=== PATIENT | female | born 1950 | race Caucasian/White ===

== ENCOUNTER → 2017-01-11 | Outpatient (CLI) | payer OTHER | LOC: FIMAGING 13:08 | PROVIDERS: ATTEND Internal Medicine | DX: Z12.31 Encounter for screening mammogram for malignant neoplasm of breast (principal) | CPT/HCPCS: G0202 ==

== ENCOUNTER → 2017-07-16 | Outpatient (CLI) | payer OTHER | LOC: FIMAGING 10:39 | PROVIDERS: ATTEND Orthopaedic Surgery | DX: M17.11 Unilateral primary osteoarthritis, right knee (principal) ==

== ENCOUNTER 2017-08-07 10:15 | Inpatient (IN) | payer OTHER ==
--- NOTE | 2017-08-07 07:18 | PDHPUP ---
History & Physical Update H&P update statement: This history and physical update is based on an assessment of the patient which was completed after admission or registration (within 24 hours), but prior to the surgery/procedure. H&P update: H&P reviewed & patient examined, no change in patient's condition since H&P completed
[~2017-08-07 10:15] MED LIST: BUPI/epINEPH/KETOROLAC IU ONE; ROPIVACAINE 0.2% 80 MG, EPINEPHrine 0.2 MG, KETOROLAC TROMETHAMINE 30 MG in SYRINGE 0 ML IU ONE; TRANEXAMIC ACID 3,000 MG in NS (SYRINGE) 50 ML IRR ONE; TRANEXAMIC ACID 3,000 MG/50 ML BAG IRR ONE; VANCOMYCIN HCL/NORMAL SALINE 250 ML IV ONE; VANCOMYCIN PHARMACY TO DOSE MISC ONE
[2017-08-07] MEDS ORDERED: ACETAMINOPHEN 325 MG TAB PO ONE (12:52)
[2017-08-07] MEDS ORDERED: FAMOTIDINE 20 MG TAB PO ONE (12:52)
[2017-08-07] MEDS ORDERED: DEXAMETHASONE 4 MG/ML VIAL IVP ONE (12:52)
[2017-08-07] MEDS ORDERED: LIDOCAINE 1% 2 ML INJ ID PRN (12:53)
[2017-08-07] MEDS ORDERED: LR 1,000 ML IV ONE (12:53)
[2017-08-07] MEDS ORDERED: MIDAZOLAM 2 MG/2 ML VIAL IVP ONE (12:56)
--- NOTE | 2017-08-07 12:59 | PDANEPAE ---
ANE History of Present Illness R TKA ANE Past Medical History - Cardiovascular History Hx Hypertension: No Hx Arrhythmias: No Hx Chest Pain: No Hx Coronary Artery / Peripheral Vascular Disease: No Hx CHF / Valvular Disease: No Hx Palpitations: No - Pulmonary History Hx COPD: No Hx Asthma/Reactive Airway Disease: No Hx Recent Upper Respiratory Infection: No Hx Oxygen in Use at Home: No Hx Sleep Apnea: No Sleep Apnea Screening Result - Last Documented: Negative - Neurologic History Hx Cerebrovascular Accident: No Hx Seizures: No Hx Dementia: No - Endocrine History Hx Diabetes: No Endocrine History Comment: Hashimotos - Renal History Hx Renal Disorders: No - Liver History Hx Hepatic Disorders: Yes Hepatic History Comment: Hereditary hemochromatosis - Neurological & Psychiatric Hx Hx Neurological and Psychiatric Disorders: No - Cancer History Hx Cancer: No - Congenital Disorder History Hx Congenital Disorders: No - GI History Hx Gastrointestinal Disorders: No - Other Health History Other Health History: osteo-arthritis - Chronic Pain History Chronic Pain: No - Surgical History Prior Surgeries: x 2 ANE Review of Systems Review of systems is: negative Review of Systems: - Exercise capacity METS (RN): 4 METS ANE Patient History - Allergies Allergies/Adverse Reactions: cephalexin monohydrate [From Keflex] Allergy (Severe, Verified 10/22/13 10:43) INTRACTABLE VOMITING,SWELLING fluconazole [From Diflucan] Allergy (Intermediate, Verified 10/22/13 10:43) Rash Penicillins Allergy (Unknown, Verified 10/22/13 10:43) UNK aspirin Allergy (Verified 07/16/17 10:44) Rash - Home Medications Home medications: home medication list seen and reviewed Home Medications: Levothyroxine [Synthroid 75 mcg (*)] 75 mcg PO DAILY06 10/22/13 [Last Taken ] Liothyronine Sodium [Cytomel 5 mcg (*)] 5 mcg PO DAILY 07/16/17 [Last Taken ] - NPO status NPO Status: no food or drink >8 hours - Anes Hx Hx Anesthesia Complications (with details): spinal CHANCE in '80s - Smoking Hx Smoking Status: Never smoked - Family Anes Hx Family Anes Hx: none Family Hx Anesthesia Complications: none ANE Labs/Vital Signs - Vital Signs Height: 160.02 cm Weight: 71.668 kg ANE Physical Exam - Airway Neck exam: FROM Mallampati Score: Class 1 Mouth exam: normal dental/mouth exam - Pulmonary Pulmonary: no respiratory distress - Cardiovascular Cardiovascular: regular rate and rhythym - ASA Status ASA Status: II ANE Anesthesia Plan Anesthesia Plan: spinal Regional Anesthesia: adductor canal FNB Total IV Anesthesia: Yes
[2017-08-07] MEDS ORDERED: LIDOCAINE 1% 2 ML INJ ONE (13:00)
[2017-08-07] MEDS ORDERED: PROPOFOL/EMULSION 500 MG/50 ML BOTTLE IV ONE (14:23)
[2017-08-07] MEDS ORDERED: LIDOCAINE 2% 100 MG/5 ML SYR ONE (14:23)
[2017-08-07] MEDS ORDERED: METOCLOPRAMIDE 10 MG/2 ML VIAL IVP PRN (14:49)
[2017-08-07] MEDS ORDERED: PROMETHAZINE HCL 25 MG/ML INJ IVP PRN ×2 (14:49→15:01)
[2017-08-07] MEDS ORDERED: DIPHENOXYLATE/ATROPINE LOMOTIL 1 TAB PO PRN (14:49)
[2017-08-07] MEDS ORDERED: TEMAZEPAM 15 MG CAP PO PRN (14:49)
[2017-08-07] MEDS ORDERED: LACTULOSE 20 GM/30 ML UDCUP PO PRN (14:49)
[2017-08-07] MEDS ORDERED: POLYETHYLENE GLYCOL 3350 17 GM PKT PO PRN (14:49)
[2017-08-07] MEDS ORDERED: ONDANSETRON 4 MG/2 ML VIAL IVP PRN ×2 (14:49→15:01)
[2017-08-07] MEDS ORDERED: MAGNESIUM HYDROXIDE 30 ML UDCUP PO PRN (14:49)
[2017-08-07] MEDS ORDERED: diphenhydrAMINE 25 MG CAP PO PRN (14:49)
[2017-08-07] MEDS ORDERED: PROMETHAZINE HCL 25 MG SUPPR PR PRN (14:49)
[2017-08-07] MEDS ORDERED: BISACODYL 10 MG SUPP PR PRN (14:49)
[2017-08-07] MEDS ORDERED: LR 1,000 ML IV SCH (15:00)
[2017-08-07] MEDS ORDERED: HYDROmorphONE/DILAUDID 1 MG/ML INJ IVP PRN (15:01)
[2017-08-07] MEDS ORDERED: MEPERIDINE 25 MG/ML SYR IVP PRN (15:01)
[2017-08-07] MEDS ORDERED: DEXAMETHASONE 4 MG/ML VIAL IVP PRN (15:01)
[2017-08-07] MEDS ORDERED: NALOXONE HCL 0.4 MG/ML INJ IVP PRN (15:01)
[2017-08-07] MEDS ORDERED: ACETAMINOPHEN 500 MG TAB PO PRN (15:01)
[2017-08-07] MEDS ORDERED: fentaNYL 100 MCG/2 ML INJ IVP PRN (15:01)
[2017-08-07] MEDS ORDERED: OXYCODONE/APAP 5/325 TAB PO PRN (15:01)
[2017-08-07] MEDS ORDERED: HYDROCODONE/APAP 5/325 TAB PO PRN (15:01)
--- NOTE | 2017-08-07 15:03 | POSTANESTH ---
Post Anesthetic Evaluation Cardiovascular Status: Normal, Stable, Similar to Pre-Op Cond Respiratory Status: Normal, Stable, Similar to Pre-op Cond. Level of Consciousness/Mental Status: Can Participate in Eval, Mildly Sleepy, Arousable Pain Control: Adequate, Prn Tx Ordered Nausea/Vomiting Control: Adequate, Prn Tx Ordered Complications Possibly Related to Anesthesia: None Noted
--- NOTE | 2017-08-07 16:05 | POSTOPPROG ---
Post Op Note Date of Operation: 08/07/17 Surgeon: Triston Collins Pot Annealer: rj collins Anesthesiologist: dr. mcwilliams Anesthesia: Spinal, Other (Specify) (adductor canal block) Pre-op Diagnosis: right knee OA Post-op Diagnosis: same Indication: right knee pain Procedure: R TKA robot assisted Findings: severe knee OA Inf/Abcess present in the surg proc area at time of surgery?: No EBL: 50-100
[2017-08-07] MEDS: ACETAMINOPHEN 325 MG TAB PO SCH (18:15)
[2017-08-07] MEDS: ONDANSETRON DISINTEGRATING 4 MG TAB PO PRN (20:37)
[2017-08-07] MEDS: SENNOSIDES/DOCUSATE SODIUM TAB PO SCH (20:37)
[2017-08-07] MEDS: oxyCODONE IR 5 MG TAB PO PRN (20:38)
[2017-08-07] MEDS: FAMOTIDINE 20 MG TAB PO SCH (20:38)
[2017-08-07] MEDS: ASPIRIN 81 MG CHEWABLE TAB PO SCH (20:38)
[2017-08-08] MEDS: ONDANSETRON DISINTEGRATING 4 MG TAB PO PRN ×5 (00:36→20:33)
[2017-08-08] MEDS: oxyCODONE IR 5 MG TAB PO PRN ×6 (00:37→20:34)
[2017-08-08] MEDS: ACETAMINOPHEN 325 MG TAB PO SCH ×4 (00:37→17:54)
[2017-08-08] MEDS ORDERED: VANCOMYCIN 1 GM in NS 250 ML IV ONE (01:00)
[2017-08-08] MEDS: LEVOTHYROXINE 75 MCG TAB PO SCH (05:31)
[2017-08-08] MEDS: CYCLOBENZAPRINE 10 MG TAB PO PRN (07:18)
[2017-08-08] MEDS: ASPIRIN 81 MG CHEWABLE TAB PO SCH ×2 (08:56→20:33)
[2017-08-08] MEDS: SENNOSIDES/DOCUSATE SODIUM TAB PO SCH ×2 (08:56→20:33)
[2017-08-08] MEDS: FAMOTIDINE 20 MG TAB PO SCH ×2 (08:57→20:34)
[2017-08-08] MEDS: LIOTHYRONINE SODIUM 5 MCG TAB PO SCH (09:03)
--- NOTE | 2017-08-08 09:05 | SOAPPROG ---
SOAP Progress Note Assessment/Plan: Assessment: Patient is doing well POD 1 s/p R TKA Pain management: pain is well controlled on oral pain meds. VTE ppx: recommend aspirin 81 mg BID for 4 weeks, cont NEHAL and SCDs D/c planning: d/c to home today pending release from PT Plan: 08/08/17 09:04 Subjective: Idalia is doing well today, denies SOB, chest pain and N/V. Objective: Vital Signs Temp Pulse Resp BP Pulse Ox 36.6 C 66 16 109/68 94 08/08/17 07:21 08/08/17 07:21 08/08/17 07:21 08/08/17 07:21 08/08/17 07:21 Laboratory Results 08/08/17 04:45 08/07/17 08/08/17 08/09/17 05:59 05:59 05:59 Intake Total 2415 730 Output Total 1030 500 Balance 1385 230 RLE: incision dressing is clean and dry, NVI, +pf/df ICD10 Worksheet Patient Problems: Problems Problem Status Onset Primary localized osteoarthritis of right knee Acute
--- NOTE | 2017-08-08 17:18 | PDMN ---
Medical Necessity Medical necessity: Patient meets inpatient criteria per PA and [facility] S-700 Knee Arthroplasty, Total (extended stay criteria: LOS will be > 2 midnights for new need for supplemental O2 at rest to maintain sat > 90% and ongoing PT needs postop for safe DC.)
--- NOTE | 2017-08-08 19:47 | GOP ---
[f rep st] OPERATIVE REPORT DATE OF OPERATION: 08/07/2017 SURGEON: Kirill Hernandes MD GREENHOUSE FLORIST: RILEY Monroy ANESTHESIA: Spinal. PREOPERATIVE DIAGNOSIS: Right knee osteoarthritis. POSTOPERATIVE DIAGNOSIS: Right knee osteoarthritis. PROCEDURE PERFORMED: Right total knee arthroplasty with computer navigation, robotic assist. FINDINGS: INDICATIONS: The patient is a 66-year-old female with severe and progressive pain and deformity of t he right knee unresponsive to conservative care. The risks and benefits of surgical intervention wer e explained in detail. DESCRIPTION OF PROCEDURE: The patient was brought to the operative room and placed on the table in t he supine position. Spinal anesthesia was induced without difficulty. A pneumatic tourniquet was appl ied about the right proximal thigh, and the leg was prepped and draped in a sterile fashion. The leg desai was applied. After exsanguination by elevation the tourniquet was inflated to 250 mmHg. Incision was made anterior medial from the tibial tuberosity to a point 2 cm proximal to the superior pole of the patella. Medial parapatellar arthrotomy was carried out from the superior pole of the p atella and posteriorly in line with the fibers of the Type II VMO. Severe tricompartmental osteoarthr itis. The medial collateral ligament was elevated and the infrapatellar fat pad was resected. The patella was everted and the articular surface was excised. A 29 mm patellar button was placed. Attention was turned first to the distal aspect of the femur. After exposure of the femur, 2 half pi ns were placed for fixation of the femoral array. In a similar fashion, 2 pins were placed anteromed ial on the tibia for fixation of the tibial array. External land marking and registration of the hip center was performed without difficulty. Internal femoral and tibial registration was carried out w ithout difficulty and the femoral and tibial checkpoints were placed and verified for accuracy. Attention was turned to the femur. The foot print for the size 2 femoral component was cut with the saw using the [employer] robotic system and verified for accuracy against the CT based plan. In a similar f ashion, the saw was used to cut the footprint for the size 2 tibial component using the [employer] system an d verified for accuracy against the CT based plan. The tibial articular surface was excised without d ifficulty, followed by the intercondylar box cut. The knee was extended and the remnants of the medial and lateral meniscus were excised. The posterior capsule was injected with ropivacaine, epinephrine and Toradol. A size 2 tibial tray was positioned . Trial reduction was then carried out. There was excellent range of motion, alignment, and stability using the 2 x 11 mm polyethylene. All trials were then removed. The joint was thoroughly irrigated and carefully dried. The press-fit c omponents were implanted. The permanent 2 x 11 mm polyethylene was placed without difficulty. The tourniquet was deflated and all bleeders were coagulated. The wound was thoroughly irrigated and closed using interrupted sutures of 2-0 Vicryl for the joint capsule. The subcu was closed with 3-0 V icryl and the skin with 4-0 Monocryl. Dermabond and Steri-Strips were applied followed by a compress robyn dressing. The patient was then moved from the operating room to the recovery room in good conditi on, having tolerated the procedure well. /[id number]/MODL
[2017-08-09] MEDS: ACETAMINOPHEN 325 MG TAB PO SCH ×3 (00:07→12:29)
[2017-08-09] MEDS: oxyCODONE IR 5 MG TAB PO PRN ×4 (05:03→12:32)
[2017-08-09] MEDS: LEVOTHYROXINE 75 MCG TAB PO SCH (05:04)
[2017-08-09] MEDS: ONDANSETRON DISINTEGRATING 4 MG TAB PO PRN ×2 (05:09→08:58)
[2017-08-09 08:17] VITALS: PULSE 62
[2017-08-09] MEDS: SENNOSIDES/DOCUSATE SODIUM TAB PO SCH (08:48)
[2017-08-09] MEDS: FAMOTIDINE 20 MG TAB PO SCH (08:49)
[2017-08-09] MEDS: LIOTHYRONINE SODIUM 5 MCG TAB PO SCH (08:49)
[2017-08-09] MEDS: ASPIRIN 81 MG CHEWABLE TAB PO SCH (08:49)
[2017-08-09 11:51] VITALS: BP 103/52; RESP 100; TEMP 98.7; O2SAT 2
[2017-08-09] MEDS: CYCLOBENZAPRINE 10 MG TAB PO PRN (12:29)
--- NOTE | 2017-08-09 13:50 | SOAPPROG ---
SOAP Progress Note Assessment/Plan: Assessment: Patient is doing well POD 2 s/p R TKA Pain management: pain is well controlled on oral pain meds. VTE ppx: recommend aspirin 81 mg BID for 4 weeks, cont NEHAL and SCDs D/c planning: d/c to home today pending release from PT foot drop: resolved Plan: 08/08/17 09:04 08/09/17 13:49 Subjective: foot drop has resolved, denies SOB, chest pain and N/V. Objective: Vital Signs Temp Pulse Resp BP Pulse Ox 37.1 C 62 100 H 103/52 L 2 L 08/09/17 11:48 08/09/17 11:48 08/09/17 11:48 08/09/17 11:48 08/09/17 11:48 Laboratory Results 08/09/17 04:27 08/08/17 08/09/17 08/10/17 05:59 05:59 05:59 Intake Total 2415 1320 780 Output Total 1030 2050 600 Balance 1385 -730 180 incision dressing is clean and dry, NVI, +pf/df ICD10 Worksheet Patient Problems: Problems Problem Status Onset Primary localized osteoarthritis of right knee Acute
--- NOTE | 2017-08-10 11:04 | GDS ---
[f rep st] DISCHARGE SUMMARY ADMISSION DIAGNOSIS: Right knee osteoarthritis. DISCHARGE DIAGNOSIS: Right knee osteoarthritis. PROCEDURE: Right total knee arthroplasty. VTE PROPHYLAXIS: Recommend aspirin 81 mg twice daily for 4 weeks. BRIEF DESCRIPTION OF HOSPITAL STAY: Patient was admitted for an elective joint arthroplasty. The pa tient tolerated the procedure well and has passed physical therapy. The patient was given appropriat e antibiotic prophylaxis and venous thromboembolism prophylaxis. The patient's pain was well control led on oral pain medication, patient was holding down food, and had urinated. Decision was made to d ischarge the patient. The patient was given post-operative prescriptions pre-operatively. PLAN: To follow up as scheduled at Dr. Hernandes's office September 05 at 8 a.m. /[id number]/MODL
== END 2017-08-09 15:24 | disposition home or self-care (01) | DRG 470 ==
LOC: F3E 12:12 → INTOOBSV 12:12 → F3N 17:29 → OBSVTOIN 08-08 17:00
PROVIDERS: ADMIT Orthopaedic Surgery; ATTEND Orthopaedic Surgery
PROC: 8E0YXBZ Computer Assisted Procedure of Lower Extremity (ICD-10-PCS; principal; 2017-08-07 14:15)
PROC: 0SRC0JA Replacement of Right Knee Joint with Synthetic Substitute, Uncemented, Open Approach (ICD-10-PCS; principal; 2017-08-07 14:15)
DX: M17.11 Unilateral primary osteoarthritis, right knee (principal); E03.9 Hypothyroidism, unspecified; J45.909 Unspecified asthma, uncomplicated
CPT/HCPCS: 97110-GP; 97116-GP; 97161-GP; 97165-GO; 97530-GP; 97535-GO; G0378; J0171; J1100; J1885; J2001; J2250; J2704; J3370

== ENCOUNTER → 2018-01-16 | Outpatient (CLI) | payer OTHER | LOC: FIMAGING 11:03 | PROVIDERS: ATTEND Internal Medicine | DX: Z12.31 Encounter for screening mammogram for malignant neoplasm of breast (principal) ==

== ENCOUNTER 2018-06-04 12:04 | Inpatient (IN) | payer OTHER ==
[2018-06-04] MEDS ORDERED: ONDANSETRON DISINTEGRATING 4 MG TAB PO PRN (13:20)
[2018-06-04] MEDS ORDERED: ACETAMINOPHEN 325 MG TAB PO PRN (13:20)
[2018-06-04] MEDS ORDERED: ONDANSETRON 4 MG/2 ML VIAL IVP PRN (13:20)
--- NOTE | 2018-06-04 13:35 | SOAPPROG ---
SOAP Progress Note Assessment/Plan: Assessment: Plan: 06/04/18 16:50 Asthma with current exacerbation: Has not responded adequately to outpt treatment, and has hx of becoming quite sick with her asthma. Will check CXR, CBC to assess for possible infection. Begin solumedrol, nebs treatments. Low threshold for pulmonary consult. Currently, O2 saturation is ok. Hypothyroid: will continue thyroid replacement. DVT prophylaxis: lovenox Dispo: admit to inpatient. Expect she will need at least 2 midnights for treatment of moderately severe asthma exacerbation. Subjective: 67 yo woman with hx mild, intermittent asthma who on occasion has a severe exacerbation. She saw her PCP on 05/29/18 for annual exam and felt well. However, 2 days later she wasn't feeling well at all and was very wheezy and short of breath. She was started on Zpak, albuterol inhaler, and prednisone 40mg daily. She is seen in the office today, 5 days later, and not feeling much better. She took her last dose of azithromycin today, as well as 20mg prednisone. She has been using her albuterol 2 puffs 3 times daily. She still feels very wheezy, SOB , and at times can hear rales in her lower lungs. O2 saturation is 92%. She has had two hospitalizations in the past for asthma over the last 8 years. She does have a hx of allergies. She is being admitted now for persistent asthma, unresponsive to outpatient treatment. Objective: Vital Signs Temp Pulse Resp BP Pulse Ox 36.8 C 67 18 135/83 H 96 06/04/18 13:28 06/04/18 13:28 06/04/18 13:28 06/04/18 13:28 06/04/18 13:28 General: well-developed, well nourished woman in mild respiratory distress. HEENT: NC/AT. PERRL, EOMI. Auditory canals clear, no cerumen. Sinuses NT bilaterally. Oral mucosa moist, no lesions. O/p without erythema, exudates. Neck: supple, no adenopathy, masses Lungs: diffuse inspiratory and expiratory wheezing especially in upper lung merino. Breath sounds somewhat more diminished in bases. No rales noted. Cardiovascular: RRR, no murmur. Abdomen: +bowel sounds, soft, NT Musculoskeletal: no swelling, deformity Skin: no rash, hives Extremities: no cyanosis, edema Neurologic: alert, oriented, no focal abnormality Psychiatric: pleasant, cooperative, normal mood, affect ICD10 Worksheet Patient Problems: Problems Problem Status Onset Primary localized osteoarthritis of right knee Acute
[2018-06-04] MEDS ORDERED: ALBUTEROL 60 PUFFS/8 GM MDI IH PRN (14:36)
[2018-06-04 15:19] LABS: PLATELET COUNT 231 10^3/uL (150-400)
[2018-06-04] MEDS: ALBUTEROL 3 ML DEYVIAL IH PRN (15:23)
[2018-06-04] MEDS: methylPREDNISolone SOD SUCC 125 MG/2 ML VIAL IVP SCH ×2 (17:17→23:31)
[2018-06-04] MEDS: MONTELUKAST SODIUM 10 MG TAB PO SCH (17:17)
--- NOTE | 2018-06-04 17:19 | PDMN ---
Medical Necessity Medical necessity: Pt meets inpt criteria per MD order and MCG M-60, Asthma, A- 1 day. 67 y/o w/hx asthma admitted w/current exacerbation, has not responded adequately to outpt treatment, hx of severe exacerbations, now requires IV steroids, neb treatments, 2.5L O2. Est LOS.2MN for moderately severe asthma exacerbation.
--- NOTE | 2018-06-04 18:05 | GHP ---
DATE OF ADMISSION: 06/04/2018 HISTORY OF PRESENT ILLNESS: The patient is a 67-year-old woman with a history of mild intermittent a sthma, who on occasion develops a severe exacerbation. She saw her primary care provider on May 29, 2018 for her annual exam and felt well. However, 2 days later, she began to not feel well at all and was very wheezy and short of breath. She was started on a Z-Benjamin and albuterol inhaler and predni sone 40 mg daily. She is seen in the office today, 5 days later and is not feeling much better. She took her last dose of azithromycin today as well as 20 mg of prednisone. She has been using her alb uterol inhaler 2 puffs 3 times daily. She still feels very wheezy and short of breath and at times s he feels she can hear rales in her lower lungs. Her O2 saturation on room air is 92%. She has had 2 hospitalizations in the past for asthma over the last 8 years, both of which lasted a week. She ziegler s have a history of allergies. She is being admitted now for persistent asthma, unresponsive to outp atient treatment. PAST MEDICAL HISTORY: Gabe thyroiditis. Hereditary hemochromatosis, asthma, hyperlipidemia, an d persistent alkaline phosphatase elevation. MEDICATIONS: Lorazepam 1 mg at bedtime p.r.n., fish oil, vitamin D, vitamin K, cranberry 400 mg twic e daily, tumeric 500 mg 2 tablets daily, liothyronine sodium 5 mcg daily, Synthroid 75 mcg daily. MEDICATION ALLERGIES: Keflex causes nausea and vomiting. Diflucan and aspirin causes a rash. PAST SURGICAL HISTORY: Foot surgery. LEEP, breast reduction, x2, knee scope, abdominal li poplasty and right knee replacement. FAMILY HISTORY: The patient has 2 sons who are healthy. Her father of narcolepsy. He also had asthma. He at 88 from myocardial infarction. Her mother had Parkinson disease. Her paternal grandfather also had heart disease. She has 1 sibling who from alcohol abuse. SOCIAL HISTORY: She is a nonsmoker and nondrinker. She is and has 2 sons and is retired. REVIEW OF SYSTEMS: GENERAL: She denies any fever or chills. She is having difficulty sleeping. SEGUN NT: No sinus pain or sore throat. RESPIRATORY: Per HPI. She is complaining of cough, shortness of breath, sputum production, and wheezing. CARDIOVASCULAR: No chest pain or irregular heart rate. GI: Not assessed. MUSCULOSKELETAL: Complaining of back pain due to cough. SKIN: No rash. NEUROLOGIC: Mild headache. PHYSICAL EXAMINATION: VITAL SIGNS: Blood pressure 128/76, weight is 166, temperature 96, heart rate 91, respiratory rate 16, O2 saturation 92% on room air. GENERAL: She is a well-developed, well-sangita shed woman in mild respiratory distress, but speaking in full sentences. HEENT: Normocephalic, atra umatic. Pupils are equal, round, reactive to light. Extraocular movements are intact. Auditory can als are clear. Tympanic membranes intact with normal light reflexes. Sinuses are nontender bilatera lly. Oral cavity is moist with no lesions. Throat, no erythema or exudate. NECK: Supple without m asses or adenopathy. SKIN: No rashes. CARDIOVASCULAR: Regular rate and rhythm. No murmurs. LUNGS : Audible wheezing noted along with cough. Diffuse inspiratory and expiratory wheezing noted on exam . Especially in her upper lung merino. Breath sounds are somewhat more diminished in the bases. No rales noted. ABDOMEN: Soft with normal bowel sounds. Nontender and nondistended. MUSCULOSKELETAL : No swelling or deformity. EXTREMITIES: No clubbing, cyanosis, or edema. NEURO: She is alert and oriented. Cognitive exam is grossly normal. Strength is grossly normal. PSYCHIATRIC: She is alert and oriented. Cognitive function intact. She is cooperative with the exam. Judgment and insight ar e good. Mood and affect full range. ASSESSMENT AND PLAN: 1. Asthma with current exacerbation. She has not responded adequately to outpatient treatment and h as a history of becoming quite sick with her asthma. We will check chest x-ray and CBC to assess for possible infection. Begin Solu-Medrol and nebulizer treatments. Low threshold for Pulmonary consul t. Currently, O2 saturation is okay. 2. Hypothyroid on replacement and will continue this. 3. Deep vein thrombosis prophylaxis, Lovenox. DISPOSITION: Admit to inpatient. Expect she will need at least 2 midnights for treatment of moderat eyal severe asthma exacerbation. /[id number]/MODL
[2018-06-05 05:24] LABS: PLATELET COUNT 239 10^3/uL (150-400)
[2018-06-05] MEDS: LIOTHYRONINE SODIUM 5 MCG TAB PO SCH (05:58)
[2018-06-05] MEDS: LEVOTHYROXINE 75 MCG TAB PO SCH (05:58)
[2018-06-05] MEDS: methylPREDNISolone SOD SUCC 125 MG/2 ML VIAL IVP SCH ×4 (05:58→23:59)
[2018-06-05] MEDS: ENOXAPARIN 40 MG/0.4 ML SYR SC SCH (08:15)
[2018-06-05] MEDS: ALBUTEROL 3 ML DEYVIAL IH PRN (09:44)
--- NOTE | 2018-06-05 09:47 | SOAPPROG ---
SOAP Progress Note Assessment/Plan: Assessment: 67 yo female w/ RAD w/ acute asthma exacerbation 2/2 rhinovirus - Still very wheezy but feeling better than yesterday -changed nebs to scheduled q4 hours, has albuterol inhaler as back up prn as well, cont on solumedrol 125 q6 today and hopefully can decrease tomorrow - will make sure to add in GI protection, humidified oxygen -dvt prop - lovenox Plan: 06/05/18 09:44 Subjective: Doing better than yesterday but still very wheezy and tight Objective: Vital Signs Temp Pulse Resp BP Pulse Ox 36.8 C 60 16 130/75 H 97 06/05/18 08:00 06/05/18 08:00 06/05/18 08:00 06/05/18 08:00 06/05/18 08:00 Microbiology 06/04/18 16:45 Respiratory Panel (PCR) - Final Nasal, Sinus - Swab Human Rhinovirus/Enterovirus Laboratory Results 06/05/18 05:08 06/04/18 15:04 06/04/18 06/05/18 06/06/18 05:59 05:59 05:59 Intake Total 500 Balance 500 Gen: pleasant female, alert, oriented Heent: perr, eomi NECK: soft supple not using asscessory muscles for breathing Chest: wheezy and rhonchi throughout CV; rrr ABD: soft nt/nd Ext: no edema, 2 + pulses - Pending Discharge Pending Discharge Within 24 Hours: Yes Pending Discharge Date: 06/06/18 Pending Discharge Time: 11:00 ICD10 Worksheet Patient Problems: Problems Problem Status Onset Primary localized osteoarthritis of right knee Acute
[2018-06-05] MEDS: ALBUTEROL 3 ML DEYVIAL IH SCH ×4 (10:01→21:25)
[2018-06-05] MEDS: FAMOTIDINE 20 MG TAB PO SCH ×2 (10:08→20:43)
--- NOTE | 2018-06-05 10:24 | ASMTCMCOM ---
CM Note CM Note Notes: Pt is a 67 y/o female admitted for shortness of breath and feeling weezy. Pt will most likely d/c independent when medically stable. No therapies ordered at this time. CM available for changes. Plan: Independent Date Signed: 06/05/2018 10:24 AM Electronically Signed By:EKNNY Brambila
[2018-06-05] MEDS: MONTELUKAST SODIUM 10 MG TAB PO SCH (17:06)
[2018-06-06] MEDS: ALBUTEROL 3 ML DEYVIAL IH SCH ×6 (01:31→22:23)
[2018-06-06] MEDS: methylPREDNISolone SOD SUCC 125 MG/2 ML VIAL IVP SCH ×3 (05:47→18:29)
[2018-06-06] MEDS: LEVOTHYROXINE 75 MCG TAB PO SCH (05:47)
[2018-06-06] MEDS: LIOTHYRONINE SODIUM 5 MCG TAB PO SCH (05:47)
[2018-06-06] MEDS: FAMOTIDINE 20 MG TAB PO SCH ×2 (08:54→21:36)
[2018-06-06] MEDS: ENOXAPARIN 40 MG/0.4 ML SYR SC SCH (08:55)
[2018-06-06] MEDS: guaiFENesin 600 MG TAB.ER PO SCH ×2 (11:13→21:36)
--- NOTE | 2018-06-06 13:59 | SOAPPROG ---
SOAP Progress Note Assessment/Plan: Assessment: 67 yo female w/ RAD w/ acute asthma exacerbation 2/2 rhinovirus - Cough getting more productive, secretions breaking up, wheezing less -cont nebs, has albuterol inhaler as back up prn as well, decrease solumedrol to 60 q6 today and hopefully can change to po steroids tomorrow, cont w/ GI protection, added in mucinex as well today. -dvt proph - pt requesting d/c enoxaparin, will do and add in geno hose and she is ambulating around quite a bit -dispo - possibly tomorrow if able to do well on oral steroids throughout day tomorrow, vs Saturday if still needing IV solumedrol/chest still tight and wheezy - careful w/ too fast of d/c as she can get severe fast. 06/06/18 13:55 Subjective: Doing better, less wheezing, coughing more productive Objective: Vital Signs Temp Pulse Resp BP Pulse Ox 36.8 C 74 17 115/64 94 06/06/18 08:00 06/06/18 10:14 06/06/18 10:14 06/06/18 08:00 06/06/18 10:14 Laboratory Results 06/05/18 05:08 06/04/18 15:04 06/05/18 06/06/18 06/07/18 05:59 05:59 05:59 Intake Total 500 2000 Balance 500 1999 Gen: pleasant, A&O x4 Hent: perr, eomi Neck: soft/supple CHest: coarse bs, rhonchi, scattered wheezes, better air movement than yesterday CV: rrr nl s1 s2 Abd: soft nt/nd Ext: no edema ICD10 Worksheet Patient Problems: Problems Problem Status Onset Primary localized osteoarthritis of right knee Acute
[2018-06-06] MEDS: MONTELUKAST SODIUM 10 MG TAB PO SCH (18:28)
[2018-06-07] MEDS: methylPREDNISolone SOD SUCC 125 MG/2 ML VIAL IVP SCH ×4 (00:11→18:02)
[2018-06-07] MEDS: ALBUTEROL 3 ML DEYVIAL IH SCH ×6 (01:05→21:59)
[2018-06-07] MEDS: LIOTHYRONINE SODIUM 5 MCG TAB PO SCH (05:36)
[2018-06-07] MEDS: LEVOTHYROXINE 75 MCG TAB PO SCH (05:36)
[2018-06-07] MEDS: FAMOTIDINE 20 MG TAB PO SCH ×2 (08:12→21:13)
[2018-06-07] MEDS: guaiFENesin 600 MG TAB.ER PO SCH ×2 (08:12→21:13)
--- NOTE | 2018-06-07 10:08 | SOAPPROG ---
SOAP Progress Note Assessment/Plan: Assessment: 67yo female with a h/o Gabe thyroiditis, hereditary hemochromatosis, and asthma who presented with a severe asthma exacerbation secondary to a rhinovirus infection. Plan: Acute asthma exacerbation 2/2 rhinovirus- continue solumedrol 60mg q6h today, juana, qiafenisen. Much improved, off O2, but still with heavy productive cough and a good amount of wheezing. DVT prophylaxis- Ambulation, SCDs or compression stockings Dispo- Hopefully home tomorrow 06/07/18 10:08 Subjective: Idalia is ambulating in the [facility] during our visit. Overall she feels markedly better, however she is a little nervous about d/c'ing today, worried it may be a day too early. Objective: Vital Signs Temp Pulse Resp BP Pulse Ox 36.6 C 71 16 139/74 H 92 06/07/18 09:19 06/07/18 08:00 06/07/18 08:00 06/07/18 08:00 06/07/18 08:00 Laboratory Results 06/05/18 05:08 06/04/18 15:04 06/06/18 06/07/18 06/08/18 05:59 05:59 05:59 Intake Total 1999 2500 Balance 1999 2500 Gen- alert, oriented, vitals stable Head- normocephalic, atraumatic CV- S1S2, RRR, no murmurs, rubs, gallops Resp- bilateral rhonchi and wheezing, productive cough during exam Abd- SNT, nondistended Extremities- + pulses, no peripheral edema Skin- warm and dry Neuro- grossly intact ICD10 Worksheet Patient Problems: Problems Problem Status Onset Primary localized osteoarthritis of right knee Acute
[2018-06-07] MEDS: MONTELUKAST SODIUM 10 MG TAB PO SCH (18:06)
[2018-06-08] MEDS: methylPREDNISolone SOD SUCC 125 MG/2 ML VIAL IVP SCH ×2 (00:03→05:54)
[2018-06-08] MEDS: ALBUTEROL 3 ML DEYVIAL IH SCH ×3 (02:00→10:13)
[2018-06-08] MEDS: LEVOTHYROXINE 75 MCG TAB PO SCH (05:54)
[2018-06-08] MEDS: LIOTHYRONINE SODIUM 5 MCG TAB PO SCH (05:54)
[2018-06-08 08:03] VITALS: BP 124/63
[2018-06-08] MEDS: guaiFENesin 600 MG TAB.ER PO SCH (08:03)
[2018-06-08] MEDS: FAMOTIDINE 20 MG TAB PO SCH (08:04)
--- NOTE | 2018-06-08 10:46 | SOAPPROG ---
SOAP Progress Note Assessment/Plan: Assessment: 67yo female with a h/o Gabe thyroiditis, hereditary hemochromatosis, and asthma who presented with a severe asthma exacerbation secondary to a rhinovirus infection. Plan: Acute asthma exacerbation 2/2 rhinovirus- will d/c on pred taper - 60, 60, 40, 40, 20, 20, 10, 10, 5, 5. ICS/LABA, albuterol q3-4 hours. F/u in office this week. Dispo- D/c home 06/08/18 10:44 Subjective: Idalia is up walking around the room this morning, says she feels better today and is eager to get home. Still with cough, however feels she is moving air well. Objective: Vital Signs Temp Pulse Resp BP Pulse Ox 36.9 C 62 18 124/63 H 93 06/08/18 07:58 06/08/18 10:10 06/08/18 10:10 06/08/18 07:58 06/08/18 10:10 Laboratory Results 06/05/18 05:08 06/04/18 15:04 06/07/18 06/08/18 06/09/18 05:59 05:59 05:59 Intake Total 2500 Balance 2500 Gen- alert, oriented, vitals stable Head- normocephalic, atraumatic CV- S1S2, RRR, no murmurs, rubs, gallops Resp- bibasilar crackles and generalized wheezing, though sounds much improved from yesterday, sating well on room air Abd- SNT, nondistended, + BS Skin- warm and dry ICD10 Worksheet Patient Problems: Problems Problem Status Onset Primary localized osteoarthritis of right knee Acute
--- NOTE | 2018-06-08 10:55 | PDIAF ---
- Diagnosis Diagnosis: Severe asthma exacerbation, acute Code Status: Full Code - Medication Management Discharge Medications: electronically signed and located in the Home Medication List. - Orders Isolation Type: Droplet Isolation Diet Recommendation: no restrictions on diet Diet Texture: Regular Texture Diet - Follow Up Care Current Providers and Referrals: Ale Payan MD [Primary Care Provider] -
[2018-06-08] MEDS ORDERED: predniSONE 20 MG TAB PO SCH (11:00)
--- NOTE | 2018-06-08 11:35 | ASMTDCNOTE ---
Case Management Discharge Discharge Order Complete? Answers: Yes Patient to Obtain Answers: via Family Medications Transportation Arranged Answers: Family/Friends Family Notified Answers: Yes Discharge Comments Notes: Patient received discharge orders, CM met with patient and . Patient states her will transport her home and support with follow up. IM delivered and signed for receipt. Patient to follow up as recommended. CM available to support if any additional CM needs arise. Date Signed: 06/08/2018 11:34 AM Electronically Signed By:Ashley Becerril
--- NOTE | 2018-06-08 12:18 | GDS ---
ADMISSION DIAGNOSIS: Acute asthma exacerbation, secondary to rhinovirus. HISTORY OF PRESENTING ILLNESS: This is a 67-year-old female with a history of mild intermittent asth ma, Gabe's thyroiditis, hereditary hemochromatosis, hyperlipidemia, and persistent alkaline phos phatase elevation who presented with a severe asthma exacerbation. She saw her primary care provider in the office on May 29 for annual exam, and at that time, she was without any symptoms. Two d ays later, she began to feel shortness of breath and wheezy. She was started on a Z-Benjamin and an albut albert inhaler with prednisone 40 mg daily. Then, she was seen again in the office on the date of admi ssion and had significantly worsened. Her oxygen saturations remained in the low 90s on room air. S he was admitted for severe exacerbation of asthma. She has responded well to IV Solu-Medrol and will be discharged on a prednisone taper. She will follow up in the office this week for ongoing monitor ing. DISCHARGE MEDICATIONS: Include Pepcid 20 mg p.o. b.i.d.; Advair 250/50 one puff inhaled b.i.d.; guai fenesin 600 mg p.o. b.i.d.; Singulair 10 mg p.o. daily, prednisone taper 60 mg p.o. daily x2 days, th en 40 mg p.o. daily x2 days, then 20 mg p.o. daily x2 days, then 10 mg p.o. daily x2 days, then 5 mg p.o. daily x2 days, then stop; Synthroid 75 mcg p.o. daily; Cytomel 5 mcg p.o. daily; albuterol inhal er 2 puffs inhaled q3-4 hours as needed. DISPOSITION: Patient will discharge to home with self-care. /[id number]/MODL
[2018-06-08] MEDS ORDERED: FLUTICASONE/SALMETER 250/50MCG DISKUS IH SCH (21:00)
[2018-06-10] MEDS ORDERED: predniSONE 20 MG TAB PO SCH (09:00)
[2018-06-12] MEDS ORDERED: predniSONE 20 MG TAB PO SCH (09:00)
[2018-06-14] MEDS ORDERED: predniSONE 10 MG TAB PO SCH (09:00)
[2018-06-16] MEDS ORDERED: predniSONE 5 MG TAB PO SCH (09:00)
== END 2018-06-08 12:16 | disposition home or self-care (01) | DRG 203 ==
LOC: F3E 13:15
PROVIDERS: ADMIT Internal Medicine; ATTEND Internal Medicine
DX: J45.21 Mild intermittent asthma with (acute) exacerbation (principal); B97.89 Other viral agents as the cause of diseases classified elsewhere; E06.3 Autoimmune thyroiditis; E83.110 Hereditary hemochromatosis; E78.5 Hyperlipidemia, unspecified; R74.8 Abnormal levels of other serum enzymes
CPT/HCPCS: J1650; J2930; J7613

== ENCOUNTER → 2018-06-09 | Outpatient (CLI) | payer OTHER | LOC: FIMAGING 09:06 | PROVIDERS: ATTEND Internal Medicine | DX: M89.9 Disorder of bone, unspecified (principal); Z78.0 Asymptomatic menopausal state; E28.9 Ovarian dysfunction, unspecified; E07.9 Disorder of thyroid, unspecified; M85.80 Other specified disorders of bone density and structure, unspecified site ==